=== PATIENT | male | born 1950 | race African-American/Black ===

== ENCOUNTER 2024-03-04 01:37 | Day surgery (SDC) | payer MEDICARE, SELFPAY ==
--- NOTE | 2024-02-28 15:06 | PC.NURSE ---
have been able to reach pt on phone number listed. pt does not have any emergency contacts in chart. called pts pcp office, dr frank and spoke with someone there who gave pts brothers number as emergency contact. jesus paris [phone].called this number and spoke with jesus, he said he would pass message to joelle. gave him office number. voiced understanding.
[2024-02-28 15:27] VITALS: BMI 32.8
--- NOTE | 2024-03-03 15:19 | P.PNAN_ITS ---
Anes - Eval Pre Procedure Procedure: Operation Date: 03/04/24 15:00 Proposed Procedures p Esophagogastroduodenoscopy & Colonoscopy - Andrae Arias MD Date/Time: 03/03/24 15:19 Pre Op Diagnosis: fam. hx colon CA Patient Data Age: 73 Gender: M Height: 1.8 m Weight: 106.7 kg Allergies Allergy/AdvReac Type Severity Reaction Status Date / Time No Known Allergies Allergy Unverified 02/28/24 15:28 Home Medications Medication Instructions Recorded Confirmed Type amlodipine 10 mg tablet 10 mg PO DAILY 01/17/24 02/28/24 History aripiprazole 2 mg tablet 2 mg PO DAILY 01/17/24 02/28/24 History aspirin 81 mg tablet,delayed 81 mg PO DAILY 01/17/24 02/28/24 History release atorvastatin 40 mg tablet 40 mg PO DAILY 01/17/24 02/28/24 History carbamazepine 200 mg tablet 200 mg PO DAILY 01/17/24 02/28/24 History empagliflozin 25 mg tablet 25 mg PO DAILY 01/17/24 02/28/24 History (Jardiance) finasteride 5 mg tablet 5 mg PO DAILY 01/17/24 02/28/24 History hydrochlorothiazide 25 mg tablet 25 mg PO DAILY 01/17/24 02/28/24 History losartan 100 mg tablet 100 mg PO DAILY 01/17/24 02/28/24 History metformin 500 mg tablet,extended 500 mg PO BID 01/17/24 02/28/24 History release 24 hr metoprolol succinate 25 mg 25 mg PO DAILY 01/17/24 02/28/24 History tablet,extended release 24 hr dulaglutide 1.5 mg/0.5 mL 1.5 mg subcut WEEKLY 02/28/24 02/28/24 History subcutaneous pen injector (Trulicity) Patient hx anesthesia problems: none Family hx anesthesia problems: none Results Review: All pre-operative results and documents have been reviewed as part of the pre-operative evaluation. [facility] Past Medical History Medical History Anemia Benign hypertension Benign prostate hyperplasia Bipolar 2 disorder Chronic anemia Contusion of chest Diabetes mellitus Diastolic dysfunction Edema, lower extremity Family history of colon cancer in mother Gastroenteritis Hypokalemia Obesity Obstructive sleep apnea Onychomycosis Seizure disorder Tinea pedis Type 2 diabetes mellitus Weight loss Surgical History Surgical History History of cholecystectomy Family History Family History Mother Carcinoma of colon Father Cerebrovascular accident Malignant neoplasm of prostate Diabetes mellitus Hypertension Social History Social History Smoking status: Never smoker Substance use: never Substance use type: does not use Living arrangements: with family Spiritual care concerns: No Exam Day of Procedure 03/03/24 15:19
[2024-03-04 13:32] VITALS: BP 144/60; PULSE 68; RESP 16; TEMP 36.5; O2SAT 97; BMI 31.3
[2024-03-04] MEDS: LACTATED RINGERS 1,000 ML 150 ML IV CONT (13:42)
[2024-03-04 13:49] LABS: Glucose Point of Care 96 mg/dl (65-105)
--- NOTE | 2024-03-04 14:18 | P.PNAN_ITS ---
Anes - Initial Pre Proc Eval Procedure: Operation Date: 03/04/24 15:00 Proposed Procedures p Esophagogastroduodenoscopy & Colonoscopy - Andrae Arias MD Date/Time: 03/04/24 14:18 Surgeon: Andrae Arias MD Pre Op Diagnosis: fam. hx colon CA Patient Data Age: 73 Gender: M Height: 1.8 m Weight: 101.8 kg Last Vital Signs Temp 36.5 C 03/04/24 13:32 Pulse 68 03/04/24 13:32 Resp 16 03/04/24 13:32 BP 144/60 H 03/04/24 13:32 Pulse Ox 97 03/04/24 13:32 O2 Del Method Room Air 03/04/24 13:32 Allergies Allergy/AdvReac Type Severity Reaction Status Date / Time No Known Allergies Allergy Verified 03/04/24 13:31 Home Medications Medication Instructions Recorded Confirmed Type amlodipine 10 mg tablet 10 mg PO DAILY 01/17/24 03/04/24 History aripiprazole 2 mg tablet 2 mg PO DAILY 01/17/24 03/04/24 History aspirin 81 mg tablet,delayed 81 mg PO DAILY 01/17/24 03/04/24 History release atorvastatin 40 mg tablet 40 mg PO DAILY 01/17/24 03/04/24 History carbamazepine 200 mg tablet 200 mg PO DAILY 01/17/24 03/04/24 History empagliflozin 25 mg tablet 25 mg PO DAILY 01/17/24 03/04/24 History (Jardiance) finasteride 5 mg tablet 5 mg PO DAILY 01/17/24 03/04/24 History hydrochlorothiazide 25 mg tablet 25 mg PO DAILY 01/17/24 03/04/24 History losartan 100 mg tablet 100 mg PO DAILY 01/17/24 03/04/24 History metformin 500 mg tablet,extended 500 mg PO BID 01/17/24 03/04/24 History release 24 hr metoprolol succinate 25 mg 25 mg PO DAILY 01/17/24 03/04/24 History tablet,extended release 24 hr dulaglutide 1.5 mg/0.5 mL 1.5 mg subcut WEEKLY 02/28/24 03/04/24 History subcutaneous pen injector (Trulicity) Laboratory Tests 03/04/24 13:45 POC Capillary Glucose 96 mg/dl (65-105) Patient hx anesthesia problems: none Family hx anesthesia problems: none Results Review: All pre-operative results and documents have been reviewed as part of the pre- operative evaluation. [facility] Past Medical History Medical History Anemia Benign hypertension Benign prostate hyperplasia Bipolar 2 disorder Chronic anemia Contusion of chest Diabetes mellitus Diastolic dysfunction Edema, lower extremity Family history of colon cancer in mother Gastroenteritis Hypokalemia Obesity Obstructive sleep apnea Onychomycosis Seizure disorder Tinea pedis Type 2 diabetes mellitus Weight loss Surgical History Surgical History History of cholecystectomy Family History Family History Mother Carcinoma of colon Father Cerebrovascular accident Malignant neoplasm of prostate Diabetes mellitus Hypertension Social History Social History Smoking status: Never smoker Substance use: never Substance use type: does not use Living arrangements: with family Spiritual care concerns: No Anes - Eval Final PreProcedure Day of Procedure 03/04/24 14:18 Patient weight: obese Heart: regular rate and rhythm Lungs: decreased breath sounds Airway: Mallampati scale class III Neurological: alert and oriented Last oral intake: >/= 8 hours ASA classification: III Emergent: no Anesthetic plan: proceed Anesthesia type and monitoring: general GIVS and standard monitoring Results Review: All pre-operative results and documents have been reviewed as part of the pre- operative evaluation. Informed Consent: The patient's anesthetic plan and its attendant risks and benefits were d iscussed with the patient/family/POA. Questions were solicited and answers provided to the satisfaction of the patient/family/POA.
--- NOTE | 2024-03-04 14:22 | PM.HPGS ---
History of Present Illness History of Present Illness Consent: Risks, benefits, and alternatives have been discussed and questions answered. Patient agrees to proceed with procedure. Chief complaint: fam. hx colon CA Narrative: Trever Fernández is a 73 year old male with anemia and weight loss, never had egd, colonoscopy 2015, denies overt gib Review of Systems Review of Systems: All systems reviewed & are unremarkable except as noted in HPI and below PMFSH Past Medical History Medical History Anemia Benign hypertension Benign prostate hyperplasia Bipolar 2 disorder Chronic anemia Contusion of chest Diabetes mellitus Diastolic dysfunction Edema, lower extremity Family history of colon cancer in mother Gastroenteritis Hypokalemia Obesity Obstructive sleep apnea Onychomycosis Seizure disorder Tinea pedis Type 2 diabetes mellitus Weight loss Surgical History Surgical History History of cholecystectomy Family History Family History Mother Carcinoma of colon Father Cerebrovascular accident Malignant neoplasm of prostate Diabetes mellitus Hypertension Social History Social History Smoking status: Never smoker Substance use: never Substance use type: does not use Living arrangements: with family Spiritual care concerns: No Meds Home Medications and Allergies Home Medications Medication Instructions Recorded Confirmed Type amlodipine 10 mg tablet 10 mg PO DAILY 01/17/24 03/04/24 History aripiprazole 2 mg tablet 2 mg PO DAILY 01/17/24 03/04/24 History aspirin 81 mg tablet,delayed 81 mg PO DAILY 01/17/24 03/04/24 History release atorvastatin 40 mg tablet 40 mg PO DAILY 01/17/24 03/04/24 History carbamazepine 200 mg tablet 200 mg PO DAILY 01/17/24 03/04/24 History empagliflozin 25 mg tablet 25 mg PO DAILY 01/17/24 03/04/24 History (Jardiance) finasteride 5 mg tablet 5 mg PO DAILY 01/17/24 03/04/24 History hydrochlorothiazide 25 mg tablet 25 mg PO DAILY 01/17/24 03/04/24 History losartan 100 mg tablet 100 mg PO DAILY 01/17/24 03/04/24 History metformin 500 mg tablet,extended 500 mg PO BID 01/17/24 03/04/24 History release 24 hr metoprolol succinate 25 mg 25 mg PO DAILY 01/17/24 03/04/24 History tablet,extended release 24 hr dulaglutide 1.5 mg/0.5 mL 1.5 mg subcut WEEKLY 02/28/24 03/04/24 History subcutaneous pen injector (Trulicity) Allergies Allergy/AdvReac Type Severity Reaction Status Date / Time No Known Allergies Allergy Verified 03/04/24 13:31 Vital Signs Vital Signs - 24 hr 03/04/24 13:32 Temperature 97.7 F Pulse Rate 68 Respiratory Rate 16 Blood Pressure 144/60 H Pulse Oximetry 97 Oxygen Delivery Room Air Exam Const: General: comfortable and no acute distress HENMT: Face/Nose/Sinus: Normal nares present Eyes: General: appearance normal, both eyes and all related structures Neck: Neck: no JVD Resp: Auscultation: clear to auscultation bilaterally Cardio: Rate: regular rate Rhythm: regular rhythm GI: Inspection: non-distended GI Palp: Yes Soft to palpation Skin: General skin exam: normal color Neuro: General: gait normal Speech: normal speech Extrem: General: normal to inspection Psych: Mental Status: mental status grossly normal Assessment and Plan Assessment and plan (1) Weight loss: Code(s): R63.4 - Abnormal weight loss Status: Acute Assessment and Plan: egd (2) Family history of colon cancer in mother: Code(s): Z80.0 - Family history of malignant neoplasm of digestive organs Status: Acute Assessment and Plan: colonoscopy (3) Anemia: Code(s): D64.9 - Anemia, unspecified Status: Acute
--- NOTE | 2024-03-04 14:34 | SUR.OPER ---
EGD start 1425 end 1430, Colonoscopy start 1434
[2024-03-04 14:44] VITALS: BP 97/55; PULSE 73; RESP 18; O2SAT 100
[2024-03-04 14:54] VITALS: BP 123/66; PULSE 73; RESP 18; O2SAT 100
[2024-03-04 15:04] VITALS: BP 125/62; PULSE 72; RESP 18; O2SAT 100
== END 2024-03-04 15:19 | disposition home or self-care (01) ==
PROVIDERS: PCP Internal Medicine Infectious Disease; Referring Provider Nurse Practitioner Family; Visit Provider Internal Medicine Gastroenterology
PROC: 0DJ08ZZ Inspection of Upper Intestinal Tract, Via Natural or Artificial Opening Endoscopic (ICD-10-PCS; CPT 43235; principal; 2024-03-04 15:00)
DX: Z12.11 Encounter for screening for malignant neoplasm of colon (principal); K64.8 Other hemorrhoids; K21.00 Gastro-esophageal reflux disease with esophagitis, without bleeding; K44.9 Diaphragmatic hernia without obstruction or gangrene; K29.80 Duodenitis without bleeding; D64.9 Anemia, unspecified; N40.0 Benign prostatic hyperplasia without lower urinary tract symptoms; I11.0 Hypertensive heart disease with heart failure; I50.30 Unspecified diastolic (congestive) heart failure; E11.9 Type 2 diabetes mellitus without complications; E87.6 Hypokalemia; G47.33 Obstructive sleep apnea (adult) (pediatric); F31.81 Bipolar II disorder; E66.9 Obesity, unspecified; Z68.31 Body mass index [BMI] 31.0-31.9, adult; Z79.82 Long term (current) use of aspirin; Z79.84 Long term (current) use of oral hypoglycemic drugs; Z79.85 Long-term (current) use of injectable non-insulin antidiabetic drugs; Z98.890 Other specified postprocedural states; Z90.49 Acquired absence of other specified parts of digestive tract; Z80.0 Family history of malignant neoplasm of digestive organs; Z80.42 Family history of malignant neoplasm of prostate; Z82.49 Family history of ischemic heart disease and other diseases of the circulatory system
CPT/HCPCS: 43239; G0105; 82948; 88305; J2003; J2704; J7120